=== PATIENT | female | born 1965 | race Caucasian/White ===

== ENCOUNTER 2022-08-27 08:33 | Emergency (ER) | payer OTHER, SELFPAY ==
[2022-08-27 08:42] VITALS: BP 167/72; PULSE 62; RESP 16; TEMP 36.7; O2SAT 100
--- NOTE | 2022-08-27 08:56 | ED.EXTPRO ---
HPI - Extremity Problem General Chief complaint: Extremity Problem,Nontraumatic Stated complaint: Right Knee Pain Source: patient and RN notes reviewed History of Present Illness HPI Narrative: 56-year-old female presents to urgent care with complaints of right knee pain. Patient states this pain has been going on for quite some time and she was seen by her primary care physician approximately 1 month ago. At that time patient was placed on meloxicam which has had no relief so pt was referred to Orthopedics. Patient has an appointment with Ortho but not until September 21. The patient states her pain is getting too bad and its keeping her up at night. Patient has applied ice but states that ice makes the pain worse. Patient has also a sleep for her nose she does wear intermittently. Denies any new injury, fevers, chills, calf pain, chest pain, or shortness breath, vomiting. Related Data Home Medications Medication Instructions Recorded Confirmed aspirin 81 mg tablet,delayed 81 mg PO DAILY 11/30/19 release (Adult Low Dose Aspirin) bosutinib 400 mg tablet (Bosulif) 400 mg PO DAILY 11/30/19 butalbital 50 mg-acetaminophen 325 1 cap PO Q4H PRN 11/30/19 mg-caffeine 40 mg-codeine 30 mg cap cholecalciferol (vitamin D3) 25 25 mcg PO DAILY 11/30/19 mcg (1,000 unit) capsule docusate sodium 100 mg capsule 100 mg PO BID 11/30/19 (Stool Softener) fenofibrate 160 mg tablet 160 mg PO DAILY 11/30/19 ferrous sulfate 325 mg (65 mg 325 mg PO DAILY 11/30/19 iron) tablet lisinopril 20 mg tablet 20 mg PO DAILY 11/30/19 loratadine 10 mg tablet (Allergy 10 mg PO DAILY 11/30/19 Relief (loratadine)) metformin 500 mg/5 mL oral solution 500 mg PO BID 11/30/19 ondansetron 4 mg disintegrating 4 mg PO Q8H 11/30/19 tablet paroxetine HCl 10 mg tablet 10 mg PO DAILY 11/30/19 propranolol 60 mg capsule,24 60 mg PO DAILY 11/30/19 hr,extended release sennosides 8.6 mg tablet (Natural 8.6 mg PO BID 11/30/19 Senna Laxative) tramadol 50 mg tablet 50 mg PO Q6H PRN 11/30/19 vitamin B complex (B 1 tablet PO DAILY 11/30/19 Complex-Vitamin B12 tablet) meloxicam 15 mg tablet mg 08/27/22 Allergies Allergy/AdvReac Type Severity Reaction Status Date / Time codeine AdvReac Mild DIZZINESS Unverified 07/25/21 12:06 ET VISUAL DISTURBANCES Review of Systems Review of Systems: Pertinent positives and pertinent negatives per HPI. PMFSH Social History Social History (System 07/25/21 @ 12:06 by Renetta Cifuentes) Smoking status: Never smoker Second hand tobacco smoke exposure: No Alcohol intake: never Substance use: never Comments At the time of my signature, I reviewed and agree with the nursing past medical, surgical, social, and family history. There is no relevant family history pertinent to the patient complaint. Exam Narrative: GENERAL: This is a well-nourished, well-developed patient, in no apparent distress. HEAD: normocephalic, atraumatic. EYES: Sclera clear/white. Vision is grossly intact. EARS: External ears normal, auditory canals clear and without drainage. Hearing grossly intact. NOSE: External nose normal with no obvious nasal discharge, nares without redness, no rhinorrhea. THROAT: Mucous membranes moist, posterior pharynx clear. NECK: Neck supple, non-tender without lymphadenopathy, masses or thyromegaly. CARDIOVASCULAR: Regular rate RESPIRATORY: No respiratory distress SKIN: warm, intact with no suspicious lesions or rash, good texture and turgor. NEURO: awake, alert, and oriented to person, place and time. There were no obvious focal neurologic abnormalities. EXTREMITIES: Mild tenderness to right lateral and inferior patellar BACK: Nontender without deformity or crepitus. No flank tenderness. Course Course Level of Care: Express Care Visit Vital Signs Vital signs: Vital Signs Temperature 98.1 F 08/27/22 08:42 Pulse Rate 62 08/27/22 08:42 Respiratory Rate 16 07/0
[2022-08-27] MEDS: predniSONE 20 MG TABLET 60 MG PO (09:05)
== END 2022-08-27 09:06 | disposition home or self-care (01) ==
PROVIDERS: Emergency Provider Nurse Practitioner Family; PCP Physician Assistant
DX: M25.561 Pain in right knee (principal); Z79.82 Long term (current) use of aspirin; E78.00 Pure hypercholesterolemia, unspecified; I10 Essential (primary) hypertension
CPT/HCPCS: 99213; G0463; J7512

== ENCOUNTER 2024-08-16 07:20 | Outpatient (CLI) | payer OTHER, SELFPAY ==
--- NOTE | ~2024-08-16 | US_ITS ---
RIGHT LOWER EXTREMITY VENOUS ULTRASOUND Ordering provider: John Nair, JOHANN History: . PAIN IN RIGHT LEG . Comparison: None. FINDINGS: --COMMON FEMORAL: Patent and free of thrombus. Normal compressibility, phasic flow and augmentation. --PROXIMAL SUPERFICIAL FEMORAL: Patent and free of thrombus. Normal compressibility, phasic flow and augmentation. --DISTAL SUPERFICIAL FEMORAL: Patent and free of thrombus. Normal compressibility, phasic flow and au gmentation. --POPLITEAL: Patent and free of thrombus. Normal compressibility, phasic flow and augmentation. --POSTERIOR TIBIAL: Patent and free of thrombus. Normal compressibility, phasic flow and augmentation . IMPRESSION: Negative right lower extremity venous US. No deep vein thrombosis. Reviewed, dictated and finalized at location A.
== END 2024-08-16 07:21 | disposition home or self-care (01) ==
LOC: CHSIMG 07:22
PROVIDERS: PCP Physician Assistant; Visit Provider Physician Assistant
DX: M79.604 Pain in right leg (principal)
CPT/HCPCS: 93971